=== PATIENT | female | born 1970 | race Caucasian/White ===

== ENCOUNTER → 2017-06-04 | Outpatient (CLI) | payer BC ==
--- NOTE | 2017-06-04 12:34 | Diagnostic Imaging Report ---
PROCEDURE: US abdomen complete. TECHNIQUE: Multiple real-time grayscale images were obtained over the abdomen in various projections. INDICATION: Right upper quadrant abdominal pain. The liver is upper limits of normal in size at 18 cm. No discrete liver mass is identified. There are small stones within the gallbladder. No gallbladder wall thickening is seen. No pericholecystic fluid is detected. No biliary ductal dilatation is identified. The pancreas is obscured by bowel gas. Spleen is unremarkable. Aorta and IVC are unremarkable. The kidneys demonstrates some questionable mild bilateral hydronephrosis. No calculi are seen. There is no ascites. IMPRESSION: 1. Cholelithiasis without evidence of acute cholecystitis. 2. Findings suggestive of mild bilateral hydronephrosis. Dictated by: Dictated on workstation # [id number]
== END ==
LOC: RAD 10:21
PROVIDERS: ATTEND Nurse Practitioner Family
DX: K80.20 Calculus of gallbladder without cholecystitis without obstruction (principal)
CPT/HCPCS: 76700

== ENCOUNTER 2018-12-28 17:24 | Emergency (ER) | payer SELFPAY ==
[~2018-12-28] VITALS: Ht 170 cm; Wt 135.0 kg
[~2018-12-28 17:24] MED LIST: ACHD5005 PO; DICL75TA2 PO; GABA-486 PO; LEVO175T5 PO; VENL150C PO
[2018-12-28 18:06] LABS: BASOPHILS % (AUTO) 0 % (0-10); EOSINOPHILS # (AUTO) 0.1 10^3/uL (0.0-0.3); EOSINOPHILS % (AUTO) 1 % (0-10); HEMATOCRIT 43 % (35-52); HEMOGLOBIN 13.5 G/DL (11.5-16.0); LYMPHOCYTES # (AUTO) 1.2 X 10^3 (1.0-4.0); LYMPHOCYTES % (AUTO) 13 % (12-44); MEAN CORPUSCULAR HEMOGLOBIN 27 PG (25-34); MEAN CORPUSCULAR HGB CONC 32 G/DL (32-36); MEAN CORPUSCULAR VOLUME 86 FL (80-99); MEAN PLATELET VOLUME 9.8 FL (7.4-10.4); MONOCYTES # (AUTO) 0.9 X 10^3 (0.0-1.0); MONOCYTES % (AUTO) 10 % (0-12); NEUTROPHILS # (AUTO) 7.1 X 10^3 (1.8-7.8); NEUTROPHILS % (AUTO) 76 % (42-75); PLATELET COUNT 291 10^3/uL (130-400); RED CELL DISTRIBUTION WIDTH 14.8 % (10.0-14.5); WHITE BLOOD COUNT 9.3 10^3/uL (4.3-11.0)
[2018-12-28 18:19] LABS: ALANINE AMINOTRANSFERASE 24 U/L (0-55); ALBUMIN 4.1 GM/DL (3.2-4.5); ALKALINE PHOSPHATASE 140 U/L (40-136); BILIRUBIN,TOTAL 0.5 MG/DL (0.1-1.0); BUN/CREATININE RATIO 12; CALCIUM 9.1 MG/DL (8.5-10.1); CARBON DIOXIDE 25 MMOL/L (21-32); CHLORIDE 105 MMOL/L (98-107); CREATININE SERUM 0.78 MG/DL (0.60-1.30); GFR ESTIMATED > 60; GLUCOSE 125 MG/DL (70-105); POTASSIUM 3.6 MMOL/L (3.6-5.0); SODIUM 139 MMOL/L (135-145); TOTAL PROTEIN 7.6 GM/DL (6.4-8.2)
[2018-12-28] MEDS ORDERED: CEPH500T PO (18:38)
--- NOTE | 2018-12-28 18:38 | ED General ---
General Chief Complaint: Skin/Wound Problems Stated Complaint: POSSIBLE FEVER,SKIN PROBLEMS Nursing Triage Note: Patient ambulatory to ER room 7 with mother with complaint of fever that began last night. Patient states she began to have pain to right buttock area and noticed a large area of redness with increased warmth to the right buttock area. She denies any injuries or bites to the area. She did take Ibuprofen last night. Nursing Sepsis Screen: Possible Severe Sepsis Risk Source of Information: Patient Exam Limitations: No Limitations History of Present Illness Date Seen by Provider: Dec 28, 2018 Time Seen by Provider: 17:34 Initial Comments This 48-year-old woman presents to the emergency room with complaints of pain, erythema, and warmth to the right buttock noted yesterday and worsening today. She has a remote history of an episode of cellulitis. She has no evidence of abscess or purulent drainage. She is afebrile at this time. Yesterday she went home from work feeling chilled. She had sweats in the night. No measured fever at this point. Allergies and Home Medications Allergies Coded Allergies: No Known Drug Allergies (Unverified , 07/26/17) Home Medications Cephalexin 500 Mg Tablet, 500 MG PO QID Prescribed by: LONDON PORTER on 12/28/18 1838 Gabapentin 100 Mg Capsule, 400 MG PO HS, (Reported) Hydrocodone Bit/Acetaminophen 1 Tab Tab, 1 TAB PO Q6H PRN Prescribed by: BENNY RETANA on 07/29/17 0942 Levothyroxine Sodium 175 Mcg Tablet, 175 MCG PO DAILY, (Reported) Venlafaxine HCl 150 Mg Cap.er.24h, 150 MG PO DAILY, (Reported) Patient Home Medication List Home Medication List Reviewed: Yes Review of Systems Review of Systems Constitutional: see HPI EENTM: no symptoms reported Respiratory: no symptoms reported Cardiovascular: no symptoms reported Gastrointestinal: no symptoms reported Genitourinary: no symptoms reported Musculoskeletal: no symptoms reported Skin: see HPI Psychiatric/Neurological: No Symptoms Reported Hematologic/Lymphatic: No Symptoms Reported Immunological/Allergic: no symptoms reported Past Ztblqqc-Fcnpti-Nptfcb Hx Past Med/Social Hx: Reviewed Nursing Past Med/Soc Hx Patient Social History Alcohol Use: Denies Use Recreational Drug Use: No Smoking Status: Never a Smoker 2nd Hand Smoke Exposure: No Recent Foreign Travel: No Contact w/Someone Who Travel: No Recent Infectious Disease Expo: No Recent Hopitalizations: No Physical Abuse: No Sexual Abuse: No Mistreated: No Fear: No Immunizations Up To Date Date of Pneumonia Vaccine: Dec 27, 2015 Seasonal Allergies Seasonal Allergies: Yes Past Medical History Surgeries: Yes Gallbladder Respiratory: Yes Sleep Apnea Currently Using CPAP: No Cardiac: No Neurological: No Reproductive Disorders: No Female Reproductive Disorders: Denies Sexually Transmitted Disease: No HIV/AIDS: No Gastrointestinal: Yes (FATTY LIVER) Liver Disease/Jaundice, Chronic Constipation, Chronic Diarrhea, Gall Bladder Disease Musculoskeletal: Yes Arthritis Endocrine: Yes Hypothyroidsim HEENT: No Loss of Vision: Bilateral Hearing Impairment: Denies Cancer: No Psychosocial: Yes Anxiety, Depression Integumentary: No Blood Disorders: No Adverse Reaction/Blood Tranf: No (N/A) Physical Exam Vital Signs Vital Signs - First Documented 12/28/18 17:28 Temp 37.1 Pulse 97 Resp 16 B/P (MAP) 138/85 (102) Pulse Ox 100 O2 Delivery Room Air Capillary Refill : Less Than 3 Seconds Height, Weight, BMI Height: 5'7.00" Weight: 291lbs. 0.0oz. 131.855312un; 46.00 BMI Method: General Appearance: No Apparent Distress, WD/WN HEENT: PERRL/EOMI, Normal ENT Inspection Neck: Normal Inspection Respiratory: Lungs Clear, Normal Breath Sounds, No Accessory Muscle Use, No Respiratory Distress Cardiovascular: No Edema, No Murmur, Tachycardia Extremity: Normal Inspection, No Pedal Edema Neurologic/Psychiatric: Alert, Oriented x3, No Motor/Sensory Deficits, Normal Mood/Affect, software client architect II-XII Norm as Tested Skin: Warm/Dry, Other (scattered follicular rash on the buttocks and thighs posteriorly. Large patch of warm, blanching, erythematous, and tender skin on the right buttock suggestive of cellulitis) Progress/Results/Core Measures Suspected Sepsis Recent Fever Within 48 Hours: Yes Infection Criteria Present: Suspected New Infection New/Unexplained Altered Menta: No Sepsis Screen: Possible Severe Sepsis Risk SIRS Temperature: Pulse: 97 Respiratory Rate: 16 Laboratory Tests 12/28/18 17:49: White Blood Count 9.3 Blood Pressure 138 /85 Mean: 102 Laboratory Tests 12/28/18 17:49: Creatinine 0.78, Platelet Count 291, Total Bilirubin 0.5 Results/Orders Lab Results Laboratory Tests Test 12/28/18 17:49 Range/Units White Blood Count 9.3 4.3-11.0 10^3/uL Red Blood Count 4.98 4.35-5.85 10^6/uL Hemoglobin 13.5 11.5-16.0 G/DL Hematocrit 43 35-52 % Mean Corpuscular Volume 86 80-99 FL Mean Corpuscular Hemoglobin 27 25-34 PG Mean Corpuscular Hemoglobin Concent 32 32-36 G/DL Red Cell Distribution Width 14.8 H 10.0-14.5 % Platelet Count 291 130-400 10^3/uL Mean Platelet Volume 9.8 7.4-10.4 FL Neutrophils (%) (Auto) 76 H 42-75 % Lymphocytes (%) (Auto) 13 12-44 % Monocytes (%) (Auto) 10 0-12 % Eosinophils (%) (Auto) 1 0-10 % Basophils (%) (Auto) 0 0-10 % Neutrophils # (Auto) 7.1 1.8-7.8 X 10^3 Lymphocytes # (Auto) 1.2 1.0-4.0 X 10^3 Monocytes # (Auto) 0.9 0.0-1.0 X 10^3 Eosinophils # (Auto) 0.1 0.0-0.3 10^3/uL Basophils # (Auto) 0.0 0.0-0.1 10^3/uL Sodium Level 139 135-145 MMOL/L Potassium Level 3.6 3.6-5.0 MMOL/L Chloride Level 105 98-107 MMOL/L Carbon Dioxide Level 25 21-32 MMOL/L Anion Gap 9 5-14 MMOL/L Blood Urea Nitrogen 9 7-18 MG/DL Creatinine 0.78 0.60-1.30 MG/DL Estimat Glomerular Filtration Rate > 60 BUN/Creatinine Ratio 12 Glucose Level 125 H 70-105 MG/DL Calcium Level 9.1 8.5-10.1 MG/DL Corrected Calcium 9.0 8.5-10.1 MG/DL Total Bilirubin 0.5 0.1-1.0 MG/DL Aspartate Amino Transf (AST/SGOT) 17 5-34 U/L Alanine Aminotransferase (ALT/SGPT) 24 0-55 U/L Alkaline Phosphatase 140 H 40-136 U/L C-Reactive Protein High Sensitivity 8.49 H 0.00-0.50 MG/DL Total Protein 7.6 6.4-8.2 GM/DL Albumin 4.1 3.2-4.5 GM/DL My Orders Orders - LONDON GEORGE MD Cbc With Automated Diff (12/28/18 17:56) Comprehensive Metabolic Panel (12/28/18 17:56) Hs C Reactive Protein (12/28/18 17:56) Ed Iv/Invasive Line Start (12/28/18 17:56) Ceftriaxone For Iv Use (Rocephin For I (12/28/18 18:45) Vital Signs/I&O 12/28/18 17:28 Temp 37.1 Pulse 97 Resp 16 B/P (MAP) 138/85 (102) Pulse Ox 100 O2 Delivery Room Air Capillary Refill : Less Than 3 Seconds Blood Pressure Mean: 102 Progress Note : Time: 18:46 Progress Note Patient is afebrile and does not meet septic criteria. A dose of Rocephin is being given to initiate antibiotic therapy. Return precautions discussed. Oral antibiotics will be continued as an outpatient. Departure Impression Primary Impression: Cellulitis Qualified Codes: L03.317 - Cellulitis of buttock Disposition: 01 HOME, SELF-CARE Condition: Improved Departure-Patient Inst. Decision time for Depature: 18:34 Referrals: GLORIA MONTEZ DO (PCP/Family) Primary Care Physician Patient Instructions: Cellulitis (Skin Infection), Adult (DC) Add. Discharge Instructions: Complete your antibiotics as prescribed. Return to care if you have worsening symptoms including development of fevers over 100, significantly spreading area of redness, etc. You may use ibuprofen up to 600 mg every 6 hours as needed for pain as well as Tylenol (acetaminophen) up to 1000 mg every 6 hours as needed for pain. All discharge instructions reviewed with patient and/or family. Voiced understanding. Scripts Cephalexin (Cephalexin) 500 Mg Tablet 500 MG PO QID, #40 TAB 0 Refills Prov: LONDON GEORGE MD 12/28/18 Copy Copies To 1: GLORIA MONTEZ JOSHUA T MD Dec 28, 2018 18:38
[2018-12-28] MEDS ORDERED: cefTRIAXone FOR IV USE 1,000 MG in WATER (STERILE) FOR INJECTION 10 ML IV ONE (18:45)
[2018-12-28 19:10] VITALS: BP 146/80
== END 2018-12-28 19:10 | disposition home or self-care (01) ==
LOC: EDUNIT# 17:24 → ER 17:26
DX: L03.317 Cellulitis of buttock (principal); E03.9 Hypothyroidism, unspecified; F41.9 Anxiety disorder, unspecified; F32.9 Major depressive disorder, single episode, unspecified
CPT/HCPCS: 36415; 80053; 85025; 86141

== ENCOUNTER → 2019-02-18 | Outpatient (CLI) | payer SELFPAY ==
[~2019-02-18] MED LIST changes: +CEPH500T PO
--- NOTE | 2019-02-18 10:26 | Diagnostic Imaging Report ---
CLINICAL INDICATION: Patient with hypothyroidism, thyroiditis and globus sensation. COMPARISONS: None. FINDINGS: THYROID NODULES: None. THYROID GLAND: The thyroid gland is diffusely heterogeneous with coarsened echotexture. There is normal-appearing Doppler flow. The right lobe measures 5.7 cm x 2.4 cm x 1.9 cm and the left lobe measures 4.6 cm x 1.5 cm x 1.9 cm in their three dimensions. ISTHMUS: The isthmus is unremarkable and measures 5 mm in thickness. IMPRESSION: Diffusely heterogeneous thyroid gland with coarsened echotexture. There is no thyroid nodule. Dictated by: Dictated on workstation # [id number]
== END ==
LOC: RAD 09:06
PROVIDERS: ATTEND Registered Nurse
DX: E03.9 Hypothyroidism, unspecified (principal); E06.9 Thyroiditis, unspecified
CPT/HCPCS: 76536